=== PATIENT | female | born 1930 | race Caucasian/White ===

== ENCOUNTER 2017-12-13 16:34 | Inpatient (IN) | payer MEDICARE, BC ==
--- NOTE | 2017-12-13 16:53 | EDM.PDOC ---
ED HPI GENERAL MEDICAL PROBLEM - General Chief Complaint: General Stated Complaint: VERTIGO FEELING FOR A WEEK N/V Time Seen by Provider: 12/13/17 16:45 Source of Information: Reports: Patient, EMS Notes Reviewed History Limitations: Reports: No Limitations - History of Present Illness INITIAL COMMENTS - FREE TEXT/NARRATIVE: this afternoon she became very dizzy with the room spinning and sat down on the floor so she would not fall. She was nauseated but did not vomit and remains nauseated. She did call EMS due to the dizziness. When arriving here she is still very nauseated with some dry heaves. Feels the dizziness is better if she keeps her eyes closed. Denies any chest pain or SOB. No diarrhea. Has been in clinic several times with some nausea and anxiety recently and was recently started on the sertraline. Denies any pain at this time. Onset: Sudden Associated Symptoms: Reports: Nausea/Vomiting, Weakness. Denies: Confusion, Chest Pain, Fever/Chills, Shortness of Breath - Related Data Allergies Allergy/AdvReac Type Severity Reaction Status Date / Time No Known Allergies Allergy Verified 12/13/17 18:41 Home Meds: Home Meds Aspirin [Halfprin] 81 mg PO DAILY 10/09/13 [History] Calcium Carbonate/Vitamin D3 [Calcium 600 + Vit D Tablet] 3 tab PO DAILY [History] Cholecalciferol (Vitamin D3) [Vitamin D] 1,000 units PO DAILY 10/09/13 [History] Enalapril Maleate 5 mg PO BID 10/09/13 [History] Flaxseed Oil [Flax Oil] 1 cap PO DAILY 10/09/13 [History] Hydrochlorothiazide 12.5 mg PO DAILY 10/09/13 [History] LORazepam [Ativan] 0.5 mg PO BEDTIME PRN 10/09/13 [History] Magnesium 250 mg PO DAILY 10/09/13 [History] Meclizine [Antivert] 25 mg PO TID PRN 10/09/13 [History] Multivit-Min/FA/Lycopene/Lut [Centrum Silver] 1 tab PO DAILY 10/09/13 [History] Simvastatin 10 mg PO DAILY 10/09/13 [History] Vitamin B Complex 1 cap PO DAILY 10/09/13 [History] Vitamin E 400 units PO DAILY 10/09/13 [History] Ascorbic Acid [Vitamin C] 1,000 mg PO DAILY 12/13/17 [History] Biotin 5,000 mcg PO DAILY 12/13/17 [History] Famotidine 20 mg PO BID 12/13/17 [History] Ferrous Sulfate 325 mg PO DAILY 12/13/17 [History] Niacin 100 mg PO DAILY 12/13/17 [History] Sertraline [Zoloft] 12.5 mg PO DAILY 12/13/17 [History] Past Medical History HEENT History: Reports: Cataract Cardiovascular History: Reports: High Cholesterol, Hypertension LAY OUT DRAFTER History: Reports: , Other (See Below) Other LAY OUT DRAFTER History: C SECTION X2 - Past Surgical History HEENT Surgical History: Reports: Cataract Surgery, Tonsillectomy Social & Family History - Caffeine Use Caffeine Use: Reports: Coffee - Living Situation & Occupation Living situation: Reports: , Alone Occupation: Retired ED ROS GENERAL - Review of Systems Review Of Systems: See Below Constitutional: Reports: Weakness. Denies: Fever, Chills HEENT: Reports: Vertigo. Denies: Ear Pain, Vision Change Respiratory: Denies: Shortness of Breath Cardiovascular: Denies: Chest Pain, Dyspnea on Exertion, Edema GI/Abdominal: Reports: Nausea, Vomiting. Denies: Abdominal Pain, Diarrhea : Reports: No Symptoms Musculoskeletal: Reports: No Symptoms Skin: Denies: Rash Neurological: Reports: Dizziness, Weakness. Denies: Confusion, Headache, Numbness, Tingling, Change in Speech Psychiatric: Reports: Anxiety ED EXAM, GENERAL - Physical Exam Exam: See Below Exam Limited By: No Limitations General Appearance: Alert, Anxious, Mild Distress Eye Exam: Bilateral Eye: PERRL (3mm) Ears: Normal External Exam, Normal Canal, Normal TMs Nose: Normal Inspection Throat/Mouth: Normal Inspection, Normal Oropharynx, No Airway Compromise Head: Atraumatic, Normocephalic Neck: Normal Inspection, Supple, Non-Tender, Full Range of Motion Respiratory/Chest: No Respiratory Distress, Lungs Clear, Normal Breath Sounds Cardiovascular: Regular Rate, Rhythm, No Edema GI/Abdominal: Normal Bowel Sounds, Soft, Non-Tender Back Exam: Normal Inspection Extremities: Normal Inspection, Non-Tender, No Pedal Edema, Normal Capillary Refill Neurological: Alert, Oriented Skin Exam: Warm, Dry, Intact Course - Vital Signs Last Recorded V/S: Last Vital Signs Temp 97 F 12/13/17 17:53 Pulse 75 12/13/17 17:53 Resp 18 12/13/17 17:53 BP 173/54 H 12/13/17 17:53 Pulse Ox 100 12/13/17 17:53 - Orders/Labs/Meds Orders: Active Orders 24 hr Category Date Time Status Head wo Cont [CT] Stat Exams 12/13/17 16:49 Taken Ondansetron [Zofran] Med 12/13/17 16:47 Active 4 mg IVPUSH Q6H PRN Medication Orders Ondansetron HCl (Zofran) 4 mg IVPUSH Q6H PRN PRN Reason: Nausea Last Admin: 12/13/17 17:01 Dose: 4 mg Labs: Laboratory Tests 12/13/17 12/13/17 12/13/17 Range/Units 16:37 16:50 16:50 WBC 5.5 (5.0-10.0) 10^3/uL RBC 3.37 L (4.00-5.50) 10^6/uL Hgb 10.3 L (12.0-16.0) g/dL Hct 30.6 L (37.0-47.0) % MCV 90.8 (82.0-94.0) fL MCH 30.6 (27.0-32.0) pg MCHC 33.7 (33.0-38.0) g/dL RDW Coeff of Srinivas 17.2 H (11.0-15.0) % Plt Count 218 (150-400) 10^3/uL Neut % (Auto) 60.8 (35-85) % Lymph % (Auto) 24.8 (10-55) % Cross % (Auto) 11.7 (0-16) % Eos % (Auto) 2.0 (0-5) % Baso % (Auto) 0.7 (0-3) % Neut # (Auto) 3.34 (1.80-7.00) 10^3/uL Lymph # (Auto) 1.36 (1.00-4.80) 10^3/uL [place] # (Auto) 0.64 (0.00-0.80) 10^3/uL Eos # (Auto) 0.11 (0.00-0.45) 10^3/uL Baso # (Auto) 0.04 10^3/uL PT (9.7-12.3) SEC INR (0.92-1.18) Sodium 131 L (136-145) mEq/L Potassium 4.1 (3.5-5.0) mEq/L Chloride 93 L (98-106) mEq/L Carbon Dioxide 29 (21-32) mmol/L BUN 10 (7-18) mg/dL Creatinine 1.0 (0.6-1.0) mg/dL Est Cr Clr Drug Dosing 27.93 mL/min Estimated GFR (MDRD) 52 L (>=60) mL/min Glucose 128 H (75-99) mg/dL Calcium 9.4 (8.4-10.1) mg/dL Lactate Dehydrogenase 580 H (100-190) U/L Creatine Kinase 44 (21-215) U/L Troponin I < 0.017 (0.00-0.06) ng/mL Urine Color Yellow (YELLOW) Urine Appearance Clear (CLEAR) Urine pH 8.5 H (4.5-8.0) Ur Specific [place] 1.015 (1.003-1.020) Urine Protein Negative (NEGATIVE) mg/dL Urine Glucose (UA) Negative (NEGATIVE) mg/dL Urine Ketones Negative (NEGATIVE) mg/dL Urine Occult Blood Negative (NEGATIVE) Urine Nitrite Negative (NEGATIVE) Urine Bilirubin Negative (NEGATIVE) Urine Urobilinogen 0.2 (0.2-1.0) EU/dL Ur Leukocyte Esterase Negative (NEGATIVE) Urine RBC Not seen (0-5) /HPF Urine WBC Not seen (0-5) /HPF Amorphous Sediment Few H (NOT SEEN) /HPF Urine Bacteria Few H (NOT SEEN) /HPF 12/13/18 Range/Units 16:50 WBC (5.0-10.0) 10^3/uL RBC (4.00-5.50) 10^6/uL Hgb (12.0-16.0) g/dL Hct (37.0-47.0) % MCV (82.0-94.0) fL MCH (27.0-32.0) pg MCHC (33.0-38.0) g/dL RDW Coeff of Srinivas (11.0-15.0) % Plt Count (150-400) 10^3/uL Neut % (Auto) (35-85) % Lymph % (Auto) (10-55) % Cross % (Auto) (0-16) % Eos % (Auto) (0-5) % Baso % (Auto) (0-3) % Neut # (Auto) (1.80-7.00) 10^3/uL Lymph # (Auto) (1.00-4.80) 10^3/uL Cross # (Auto) (0.00-0.80) 10^3/uL Eos # (Auto) (0.00-0.45) 10^3/uL Baso # (Auto) 10^3/uL PT 10.5 (9.7-12.3) SEC INR 1.01 (0.92-1.18) Sodium (136-145) mEq/L Potassium (3.5-5.0) mEq/L Chloride (98-106) mEq/L Carbon Dioxide (21-32) mmol/L BUN (7-18) mg/dL Creatinine (0.6-1.0) mg/dL Est Cr Clr Drug Dosing mL/min Estimated GFR (MDRD) (>=60) mL/min Glucose (75-99) mg/dL Calcium (8.4-10.1) mg/dL Lactate Dehydrogenase (100-190) U/L Creatine Kinase (21-215) U/L Troponin I (0.00-0.06) ng/mL Urine Color (YELLOW) Urine Appearance (CLEAR) Urine pH (4.5-8.0) Ur Specific [place] (1.003-1.020) Urine Protein (NEGATIVE) mg/dL Urine Glucose (UA) (NEGATIVE) mg/dL Urine Ketones (NEGATIVE) mg/dL Urine Occult Blood (NEGATIVE) Urine Nitrite (NEGATIVE) Urine Bilirubin (NEGATIVE) Urine Urobilinogen (0.2-1.0) EU/dL Ur Leukocyte Esterase (NEGATIVE) Urine RBC (0-5) /HPF Urine WBC (0-5) /HPF Amorphous Sediment (NOT SEEN) /HPF Urine Bacteria (NOT SEEN) /HPF Meds: Medications Generic Name Dose Route Start Last Admin Trade Name Freq PRN Reason Stop Dose Admin Ondansetron HCl 4 mg 12/13/17 16:47 12/13/17 17:01 Zofran IVPUSH 4 mg Q6H PRN Administration Nausea - Re-Assessments/Exams Free Text/Narrative Re-Assessment/Exam: 12/13/17 18:08 Radiologist did call with normal CT of head report. Discussed case with Dr. Ramirez and will admit to observation with consult to PT. He agrees with admission and plan. Departure - Departure Time of Disposition: 18:20 Disposition: Refer to Observation Condition: Fair Clinical Impression: Vertigo - Discharge Information *PRESCRIPTION DRUG MONITORING PROGRAM REVIEWED*: No *COPY OF PRESCRIPTION DRUG MONITORING REPORT IN PATIENT YESSICA: No - Problem List & Annotations (1) Vertigo SNOMED Code(s): 064156656 Code(s): R42 - DIZZINESS AND GIDDINESS Status: Acute Priority: High Current Visit: Yes - Problem List Review Problem List Initiated/Reviewed/Updated: Yes - My Orders Last 24 Hours: My Active Orders 12/13/17 16:47 Ondansetron [Zofran] 4 mg IVPUSH Q6H PRN 12/13/17 16:49 Head wo Cont [CT] Stat - Assessment/Plan Admission H&P: Please use this note as an admission H&P Last 24 Hours: My Active Orders 12/13/17 16:47 Ondansetron [Zofran] 4 mg IVPUSH Q6H PRN 12/13/17 16:49 Head wo Cont [CT] Stat
[2017-12-13] MEDS: Ondansetron 4 MG/2 ML SDV IVPUSH PRN (17:01)
[2017-12-13 17:20] LABS: CHLORIDE,CL 93 mEq/L (98-106); SODIUM,NA 131 mEq/L (136-145)
[2017-12-13] MEDS ORDERED: Acetaminophen 325 MG Tab PO PRN (20:07)
[2017-12-13] MEDS ORDERED: Sodium Chloride 0.9% 10 ML Syringe FLUSH PRN (20:07)
[2017-12-13] MEDS: Sodium Chloride 0.9% 1,000 ML IV SCH (20:55)
[2017-12-13] MEDS: Enoxaparin 30 MG/0.3 ML Syringe SUBCUT SCH (20:57)
[2017-12-13] MEDS: Pantoprazole 40 MG Vial IVPUSH SCH (20:57)
[2017-12-13] MEDS: ENALAPRIL 5 MG PO SCH (21:00)
[2017-12-13] MEDS: SERTRALINE 25 MG PO SCH (21:00)
[2017-12-14] MEDS ORDERED: MAGNESIUM 500 MG PO SCH (08:00)
[2017-12-14] MEDS: ENALAPRIL 5 MG PO SCH ×2 (09:20→20:14)
[2017-12-14] MEDS: HYDROCHLOROTHIAZIDE 12.5 MG PO SCH (09:20)
[2017-12-14] MEDS: MECLIZINE 25 MG PO PRN ×2 (09:20→12:58)
[2017-12-14] MEDS: Sodium Chloride 0.9% 1,000 ML IV SCH (09:27)
--- NOTE | 2017-12-14 11:12 | PCM.PN ---
- General Info Date of Service: 12/14/17 Admission Dx/Problem (Free Text): Vertigo Functional Status: Reports: Pain Controlled, Tolerating Diet, Ambulating ( ambulating with walker, does still feel unsteady with dizziness.) - Review of Systems General: Reports: Weakness. Denies: Fever, Fatigue, Malaise HEENT: Denies: Ear Pain, Sinus Congestion, Rhinitis Pulmonary: Denies: Shortness of Breath, Cough Cardiovascular: Denies: Chest Pain, Edema, Lightheadedness Gastrointestinal: Reports: Nausea. Denies: Abdominal Pain, Vomiting Genitourinary: Denies: Dysuria Musculoskeletal: Reports: No Symptoms Skin: Reports: No Symptoms Neurological: Reports: Dizziness. Denies: Headache - Patient Data Vitals - Most Recent: Last Vital Signs Temp 98.6 F 12/14/17 08:00 Pulse 78 12/14/17 08:00 Resp 18 12/14/17 08:00 BP 135/52 L 12/14/17 08:00 Pulse Ox 99 12/14/17 08:00 Weight - Most Recent: 137 lb 3.2 oz I&O - Last 24 Hours: Intake & Output 12/13/17 12/14/17 12/14/17 22:59 06:59 14:59 Intake Total 940 Balance 940 Lab Results Last 24 Hours: Laboratory Results - last 24 hr 12/13/17 12/13/17 12/13/17 Range/Units 16:37 16:50 16:50 WBC 5.5 (5.0-10.0) 10^3/uL RBC 3.37 L (4.00-5.50) 10^6/uL Hgb 10.3 L (12.0-16.0) g/dL Hct 30.6 L (37.0-47.0) % MCV 90.8 (82.0-94.0) fL MCH 30.6 (27.0-32.0) pg MCHC 33.7 (33.0-38.0) g/dL RDW Coeff of Srinivas 17.2 H (11.0-15.0) % Plt Count 218 (150-400) 10^3/uL Neut % (Auto) 60.8 (35-85) % Lymph % (Auto) 24.8 (10-55) % [place] % (Auto) 11.7 (0-16) % Eos % (Auto) 2.0 (0-5) % Baso % (Auto) 0.7 (0-3) % Neut # (Auto) 3.34 (1.80-7.00) 10^3/uL Lymph # (Auto) 1.36 (1.00-4.80) 10^3/uL [place] # (Auto) 0.64 (0.00-0.80) 10^3/uL Eos # (Auto) 0.11 (0.00-0.45) 10^3/uL Baso # (Auto) 0.04 10^3/uL PT (9.7-12.3) SEC INR (0.92-1.18) Sodium 131 L (136-145) mEq/L Potassium 4.1 (3.5-5.0) mEq/L Chloride 93 L (98-106) mEq/L Carbon Dioxide 29 (21-32) mmol/L BUN 10 (7-18) mg/dL Creatinine 1.0 (0.6-1.0) mg/dL Est Cr Clr Drug Dosing 27.93 mL/min Estimated GFR (MDRD) 52 L (>=60) mL/min Glucose 128 H (75-99) mg/dL Calcium 9.4 (8.4-10.1) mg/dL Lactate Dehydrogenase 580 H (100-190) U/L Creatine Kinase 44 (21-215) U/L Troponin I < 0.017 (0.00-0.06) ng/mL Urine Color Yellow (YELLOW) Urine Appearance Clear (CLEAR) Urine pH 8.5 H (4.5-8.0) Ur Specific [place] 1.015 (1.003-1.020) Urine Protein Negative (NEGATIVE) mg/dL Urine Glucose (UA) Negative (NEGATIVE) mg/dL Urine Ketones Negative (NEGATIVE) mg/dL Urine Occult Blood Negative (NEGATIVE) Urine Nitrite Negative (NEGATIVE) Urine Bilirubin Negative (NEGATIVE) Urine Urobilinogen 0.2 (0.2-1.0) EU/dL Ur Leukocyte Esterase Negative (NEGATIVE) Urine RBC Not seen (0-5) /HPF Urine WBC Not seen (0-5) /HPF Amorphous Sediment Few H (NOT SEEN) /HPF Urine Bacteria Few H (NOT SEEN) /HPF 12/13/17 12/14/17 12/14/17 Range/Units 16:50 07:08 07:08 WBC 5.8 (5.0-10.0) 10^3/uL RBC 3.03 L (4.00-5.50) 10^6/uL Hgb 9.1 L (12.0-16.0) g/dL Hct 28.0 L (37.0-47.0) % MCV 92.4 (82.0-94.0) fL MCH 30.0 (27.0-32.0) pg MCHC 32.5 L (33.0-38.0) g/dL RDW Coeff of Srinivas 17.3 H (11.0-15.0) % Plt Count 191 (150-400) 10^3/uL Neut % (Auto) 67.5 (35-85) % Lymph % (Auto) 19.0 (10-55) % [place] % (Auto) 10.6 (0-16) % Eos % (Auto) 2.2 (0-5) % Baso % (Auto) 0.7 (0-3) % Neut # (Auto) 3.93 (1.80-7.00) 10^3/uL Lymph # (Auto) 1.11 (1.00-4.80) 10^3/uL [place] # (Auto) 0.62 (0.00-0.80) 10^3/uL Eos # (Auto) 0.13 (0.00-0.45) 10^3/uL Baso # (Auto) 0.04 10^3/uL PT 10.5 (9.7-12.3) SEC INR 1.01 (0.92-1.18) Sodium 134 L (136-145) mEq/L Potassium 3.7 (3.5-5.0) mEq/L Chloride 98 (98-106) mEq/L Carbon Dioxide 31 (21-32) mmol/L BUN 9 (7-18) mg/dL Creatinine 1.0 (0.6-1.0) mg/dL Est Cr Clr Drug Dosing 27.93 mL/min Estimated GFR (MDRD) 52 L (>=60) mL/min Glucose 98 (75-99) mg/dL Calcium 8.4 (8.4-10.1) mg/dL Lactate Dehydrogenase (100-190) U/L Creatine Kinase (21-215) U/L Troponin I (0.00-0.06) ng/mL Urine Color (YELLOW) Urine Appearance (CLEAR) Urine pH (4.5-8.0) Ur Specific [place] (1.003-1.020) Urine Protein (NEGATIVE) mg/dL Urine Glucose (UA) (NEGATIVE) mg/dL Urine Ketones (NEGATIVE) mg/dL Urine Occult Blood (NEGATIVE) Urine Nitrite (NEGATIVE) Urine Bilirubin (NEGATIVE) Urine Urobilinogen (0.2-1.0) EU/dL Ur Leukocyte Esterase (NEGATIVE) Urine RBC (0-5) /HPF Urine WBC (0-5) /HPF Amorphous Sediment (NOT SEEN) /HPF Urine Bacteria (NOT SEEN) /HPF Med Orders - Current: Current Medications Acetaminophen (Tylenol) 650 mg PO Q4H PRN PRN Reason: Pain (Mild 1-3)/fever Enalapril Maleate (Vasotec) 5 mg PO BID [facility] Last Admin: 12/14/17 09:20 Dose: 5 mg Enoxaparin Sodium (Lovenox) 30 mg SUBCUT Q24H [facility] Last Admin: 12/13/17 20:57 Dose: 30 mg Hydrochlorothiazide (Hydrochlorothiazide) 12.5 mg PO DAILY [facility] Last Admin: 12/14/17 09:20 Dose: 12.5 mg Sodium Chloride (Normal Saline) 1,000 mls @ 75 mls/hr IV ASDIRECTED [facility] Last Admin: 12/14/17 09:27 Dose: 75 mls/hr Lorazepam (Ativan) 0.5 mg PO BEDTIME PRN PRN Reason: Sleep Ptom Meclizine [ (Antivert] 25 Mg) 25 mg PO TID PRN PRN Reason: dizziness Last Admin: 12/14/17 09:20 Dose: 25 mg Ptom Magnesium [ (Magnesium] 250 Mg) 250 mg PO DAILY [facility] Ondansetron HCl (Zofran) 4 mg IVPUSH Q6H PRN PRN Reason: Nausea Last Admin: 12/13/17 17:01 Dose: 4 mg Pantoprazole Sodium (Protonix Iv) 40 mg IVPUSH Q24H [facility] Last Admin: 12/13/17 20:57 Dose: 40 mg Sertraline HCl (Zoloft) 12.5 mg PO BEDTIME [facility] Last Admin: 12/13/17 21:00 Dose: 12.5 mg Sodium Chloride (Saline Flush) 10 ml FLUSH ASDIRECTED PRN PRN Reason: Keep Vein Open Discontinued Medications Ptom Magnesium [ (Magnesium] 500 Mg) 500 mg PO DAILY [facility] Last Admin: 12/14/17 09:22 Dose: Not Given - Exam General: Alert, Oriented, Cooperative, No Acute Distress HEENT: Pupils Equal, Pupils Reactive, Mucous Membr. Moist/[place] Neck: Supple Lungs: Clear to Auscultation, Normal Respiratory Effort Cardiovascular: Regular Rate, Regular Rhythm GI/Abdominal Exam: Normal Bowel Sounds, Soft, Non-Tender Extremities: Normal Inspection, No Pedal Edema Skin: Warm, Dry Neurological: No New Focal Deficit - Problem List & Annotations (1) Vertigo SNOMED Code(s): 743118452 Code(s): R42 - DIZZINESS AND GIDDINESS Status: Acute Priority: High Current Visit: Yes - Problem List Review Problem List Initiated/Reviewed/Updated: Yes - Assessment Assessment:: Vertigo - Plan Plan:: 12-14-2017 Patient resting without symptoms. Does admit that when she gets out of bed and ambulates or if she moves her head quickly, still gets nauseated and dizzy. Blood pressure stable this am. Labs are normal this am, WBC 5.8. Hemoglobin, 9.1. Sodium 134. CT scan of the head was negative yesterday. Will proceed with canalith repositioning today. Meclizine as needed. Reevaluate discharge potential in am.
[2017-12-14] MEDS: MECLIZINE 25 MG PO SCH ×2 (15:48→20:13)
[2017-12-14] MEDS ORDERED: MECLIZINE 25 MG PO SCH (16:00)
[2017-12-14] MEDS: SERTRALINE 25 MG PO SCH (20:15)
[2017-12-14] MEDS: Enoxaparin 30 MG/0.3 ML Syringe SUBCUT SCH (20:15)
[2017-12-14] MEDS: LORAZEPAM 0.5 MG PO PRN (20:22)
[2017-12-14] MEDS: Pantoprazole 40 MG Vial IVPUSH SCH (21:32)
[2017-12-15] MEDS: Sodium Chloride 0.9% 1,000 ML IV SCH ×2 (01:04→13:37)
[2017-12-15] MEDS: Ondansetron 4 MG/2 ML SDV IVPUSH PRN (01:07)
[2017-12-15] MEDS: HYDROCHLOROTHIAZIDE 12.5 MG PO SCH (07:47)
[2017-12-15] MEDS: ENALAPRIL 5 MG PO SCH ×2 (07:47→19:40)
[2017-12-15] MEDS: MAGNESIUM 250 MG PO SCH (07:47)
[2017-12-15] MEDS: MECLIZINE 25 MG PO SCH ×4 (07:48→19:41)
--- NOTE | 2017-12-15 13:15 | PCM.PN ---
- General Info Date of Service: 12/15/17 Admission Dx/Problem (Free Text): Vertigo Functional Status: Reports: Pain Controlled, Tolerating Diet, Ambulating - Review of Systems General: Reports: Weakness. Denies: Fever, Fatigue, Malaise HEENT: Reports: No Symptoms Pulmonary: Denies: Shortness of Breath, Cough Cardiovascular: Denies: Chest Pain, Edema, Lightheadedness Gastrointestinal: Reports: Nausea. Denies: Abdominal Pain, Vomiting Genitourinary: Reports: No Symptoms Musculoskeletal: Reports: No Symptoms Skin: Reports: No Symptoms Neurological: Reports: Dizziness - Patient Data Vitals - Most Recent: Last Vital Signs Temp 98.6 F 12/15/17 12:00 Pulse 74 12/15/17 12:00 Resp 20 12/15/17 12:00 BP 134/49 L 12/15/17 12:00 Pulse Ox 98 12/15/17 12:00 Weight - Most Recent: 137 lb 3.2 oz I&O - Last 24 Hours: Intake & Output 12/14/17 12/15/17 12/15/17 22:59 06:59 14:59 Intake Total 1000 Balance 1000 Med Orders - Current: Current Medications Acetaminophen (Tylenol) 650 mg PO Q4H PRN PRN Reason: Pain (Mild 1-3)/fever Enalapril Maleate (Vasotec) 5 mg PO BID [facility] Last Admin: 12/15/17 07:47 Dose: 5 mg Enoxaparin Sodium (Lovenox) 30 mg SUBCUT Q24H [facility] Last Admin: 12/14/17 20:15 Dose: 30 mg Hydrochlorothiazide (Hydrochlorothiazide) 12.5 mg PO DAILY [facility] Last Admin: 12/15/17 07:47 Dose: 12.5 mg Sodium Chloride (Normal Saline) 1,000 mls @ 75 mls/hr IV ASDIRECTED [facility] Last Admin: 12/15/17 01:04 Dose: 75 mls/hr Lorazepam (Ativan) 0.5 mg PO BEDTIME PRN PRN Reason: Sleep Last Admin: 12/14/17 20:22 Dose: 0.5 mg Ptom Magnesium [ (Magnesium] 250 Mg) 250 mg PO DAILY [facility] Last Admin: 12/15/17 07:47 Dose: 250 mg Meclizine 25 MgOwn (Med) 25 mg PO QID [facility] Last Admin: 12/15/17 12:07 Dose: 25 mg Ondansetron HCl (Zofran) 4 mg IVPUSH Q6H PRN PRN Reason: Nausea Last Admin: 12/15/17 01:07 Dose: 4 mg Pantoprazole Sodium (Protonix Iv) 40 mg IVPUSH Q24H [facility] Last Admin: 12/14/17 21:32 Dose: 40 mg Sertraline HCl (Zoloft) 12.5 mg PO BEDTIME [facility] Last Admin: 12/14/17 20:15 Dose: 12.5 mg Sodium Chloride (Saline Flush) 10 ml FLUSH ASDIRECTED PRN PRN Reason: Keep Vein Open Discontinued Medications Ptom Magnesium [ (Magnesium] 500 Mg) 500 mg PO DAILY [facility] Last Admin: 12/14/17 09:22 Dose: Not Given Ptom Meclizine [ (Antivert] 25 Mg) 25 mg PO TID PRN PRN Reason: dizziness Last Admin: 12/14/17 12:58 Dose: 25 mg Meclizine 25 MgOwn (Med) 25 mg PO QID [facility] - Exam General: Alert, Oriented HEENT: Mucous Membr. Moist/[place] Neck: Supple Lungs: Clear to Auscultation, Normal Respiratory Effort Cardiovascular: Regular Rate, Regular Rhythm GI/Abdominal Exam: Normal Bowel Sounds, Soft, Non-Tender Extremities: Normal Inspection, No Pedal Edema Skin: Warm, Dry Neurological: No New Focal Deficit - Problem List & Annotations (1) Vertigo SNOMED Code(s): 859527479 Code(s): R42 - DIZZINESS AND GIDDINESS Status: Acute Priority: High Current Visit: Yes - Problem List Review Problem List Initiated/Reviewed/Updated: Yes - My Orders Last 24 Hours: My Active Orders 12/14/17 16:00 Meclizine [Antivert] 25 mg PO QID 12/15/17 12:14 Collar Applied [Spinal Immobilization] [RC] ASDIRECTED - Assessment Assessment:: Vertigo - Plan Plan:: 12-14-2017 Patient resting without symptoms. Does admit that when she gets out of bed and ambulates or if she moves her head quickly, still gets nauseated and dizzy. Blood pressure stable this am. Labs are normal this am, WBC 5.8. Hemoglobin, 9.1. Sodium 134. CT scan of the head was negative yesterday. Will proceed with canalith repositioning today. Meclizine as needed. Reevaluate discharge potential in am. 12-15-2017 Patient still feeling somewhat dizzy this am. States had a "bad spell during the night". Had canalith repositioning yesterday but patient did not note much change with that. Continues to have dizziness when she gets up and ambulates or if she turns her head quickly. Patient is receiving Meclizine scheduled now. Will continue to work with PT. Transfer to inpatient as continues to be symptomatic. Soft collar on. Reevaluate in am.
[2017-12-15] MEDS: Menthol/Zinc Oxide Ointment 113 GM Tube TOP PRN (14:32)
[2017-12-15] MEDS: SERTRALINE 25 MG PO SCH (19:40)
[2017-12-15] MEDS: LORAZEPAM 0.5 MG PO PRN (19:43)
[2017-12-15] MEDS: Enoxaparin 30 MG/0.3 ML Syringe SUBCUT SCH (19:44)
[2017-12-15] MEDS: Pantoprazole 40 MG Vial IVPUSH SCH (20:54)
[2017-12-16] MEDS: Sodium Chloride 0.9% 1,000 ML IV SCH (02:54)
[2017-12-16] MEDS: HYDROCHLOROTHIAZIDE 12.5 MG PO SCH (07:33)
[2017-12-16] MEDS: ENALAPRIL 5 MG PO SCH ×2 (07:33→19:37)
[2017-12-16] MEDS: MAGNESIUM 250 MG PO SCH (07:34)
[2017-12-16] MEDS: MECLIZINE 25 MG PO SCH ×4 (07:34→19:37)
--- NOTE | 2017-12-16 09:00 | PCM.PN ---
- General Info Date of Service: 12/16/17 Admission Dx/Problem (Free Text): Vertigo Subjective Update: Patient denies any dizziness today. States she feels much better. Denies any pain or blood in stool. Functional Status: Reports: Pain Controlled Pain Score: 0 - Review of Systems General: Reports: No Symptoms HEENT: Reports: No Symptoms Pulmonary: Reports: No Symptoms Cardiovascular: Reports: No Symptoms Gastrointestinal: Reports: No Symptoms Genitourinary: Reports: No Symptoms Musculoskeletal: Reports: No Symptoms Skin: Reports: No Symptoms Neurological: Reports: No Symptoms Psychiatric: Reports: No Symptoms - Patient Data Vitals - Most Recent: Last Vital Signs Temp 36.3 C 12/16/17 07:25 Pulse 72 12/16/17 07:25 Resp 20 12/16/17 07:25 BP 152/53 H 12/16/17 07:33 Pulse Ox 100 12/16/17 07:25 Weight - Most Recent: 62.233 kg I&O - Last 24 Hours: Intake & Output 12/15/17 12/16/17 12/16/17 22:59 06:59 14:59 Intake Total 996 Balance 996 Lab Results Last 24 Hours: Laboratory Results - last 24 hr 12/16/17 12/16/17 Range/Units 06:45 06:45 WBC 4.9 L (5.0-10.0) 10^3/uL RBC 2.86 L (4.00-5.50) 10^6/uL Hgb 8.7 L (12.0-16.0) g/dL Hct 26.9 L (37.0-47.0) % MCV 94.1 H (82.0-94.0) fL MCH 30.4 (27.0-32.0) pg MCHC 32.3 L (33.0-38.0) g/dL RDW Coeff of Srinivas 17.5 H (11.0-15.0) % Plt Count 168 (150-400) 10^3/uL Neut % (Auto) 58.7 (35-85) % Lymph % (Auto) 26.4 (10-55) % [place] % (Auto) 11.0 (0-16) % Eos % (Auto) 3.1 (0-5) % Baso % (Auto) 0.8 (0-3) % Neut # (Auto) 2.87 (1.80-7.00) 10^3/uL Lymph # (Auto) 1.29 (1.00-4.80) 10^3/uL [place] # (Auto) 0.54 (0.00-0.80) 10^3/uL Eos # (Auto) 0.15 (0.00-0.45) 10^3/uL Baso # (Auto) 0.04 10^3/uL Sodium 138 (136-145) mEq/L Potassium 3.7 (3.5-5.0) mEq/L Chloride 103 (98-106) mEq/L Carbon Dioxide 29 (21-32) mmol/L BUN 10 (7-18) mg/dL Creatinine 0.9 (0.6-1.0) mg/dL Est Cr Clr Drug Dosing 31.04 mL/min Estimated GFR (MDRD) 59 L (>=60) mL/min Glucose 96 (75-99) mg/dL Calcium 8.0 L (8.4-10.1) mg/dL Med Orders - Current: Current Medications Acetaminophen (Tylenol) 650 mg PO Q4H PRN PRN Reason: Pain (Mild 1-3)/fever Calamine/Phenol (Calmoseptine) 0 gm TOP QID PRN PRN Reason: Itching Last Admin: 12/15/17 14:32 Dose: 1 applic Enalapril Maleate (Vasotec) 5 mg PO BID [facility] Last Admin: 12/16/17 07:33 Dose: 5 mg Enoxaparin Sodium (Lovenox) 30 mg SUBCUT Q24H [facility] Last Admin: 12/15/17 19:44 Dose: 30 mg Hydrochlorothiazide (Hydrochlorothiazide) 12.5 mg PO DAILY [facility] Last Admin: 12/16/17 07:33 Dose: 12.5 mg Lorazepam (Ativan) 0.5 mg PO BEDTIME PRN PRN Reason: Sleep Last Admin: 12/15/17 19:43 Dose: 0.5 mg Ptom Magnesium [ (Magnesium] 250 Mg) 250 mg PO DAILY [facility] Last Admin: 12/16/17 07:34 Dose: 250 mg Meclizine 25 MgOwn (Med) 25 mg PO QID [facility] Last Admin: 12/16/17 07:34 Dose: 25 mg Ondansetron HCl (Zofran) 4 mg IVPUSH Q6H PRN PRN Reason: Nausea Last Admin: 12/15/17 01:07 Dose: 4 mg Pantoprazole Sodium (Protonix Iv) 40 mg IVPUSH Q24H [facility] Last Admin: 12/15/17 20:54 Dose: 40 mg Sertraline HCl (Zoloft) 12.5 mg PO BEDTIME [facility] Last Admin: 12/15/17 19:40 Dose: 12.5 mg Sodium Chloride (Saline Flush) 10 ml FLUSH ASDIRECTED PRN PRN Reason: Keep Vein Open Discontinued Medications Sodium Chloride (Normal Saline) 1,000 mls @ 75 mls/hr IV ASDIRECTED [facility] Last Admin: 12/16/17 02:54 Dose: 75 mls/hr Ptom Magnesium [ (Magnesium] 500 Mg) 500 mg PO DAILY [facility] Last Admin: 12/14/17 09:22 Dose: Not Given Ptom Meclizine [ (Antivert] 25 Mg) 25 mg PO TID PRN PRN Reason: dizziness Last Admin: 12/14/17 12:58 Dose: 25 mg Meclizine 25 MgOwn (Med) 25 mg PO QID [facility] - Exam General: Alert, Oriented, Cooperative, No Acute Distress HEENT: Pupils Equal, Pupils Reactive, EOMI, Mucous Membr. Moist/[place] Neck: Supple Lungs: Clear to Auscultation, Normal Respiratory Effort Cardiovascular: Regular Rate, Regular Rhythm GI/Abdominal Exam: Normal Bowel Sounds, Soft, Non-Tender, No Organomegaly, No Distention Extremities: Normal Inspection, Normal Range of Motion, Non-Tender Skin: Warm, Dry, Intact Neurological: No New Focal Deficit Psy/Mental Status: Alert, Normal Affect, Normal Mood - Problem List Review Problem List Initiated/Reviewed/Updated: Yes - My Orders Last 24 Hours: My Active Orders 12/17/17 06:00 CBC WITH AUTO DIFF [HEME] Routine - Assessment Assessment:: Vertigo - Plan Plan:: 12-14-2017 Patient resting without symptoms. Does admit that when she gets out of bed and ambulates or if she moves her head quickly, still gets nauseated and dizzy. Blood pressure stable this am. Labs are normal this am, WBC 5.8. Hemoglobin, 9.1. Sodium 134. CT scan of the head was negative yesterday. Will proceed with canalith repositioning today. Meclizine as needed. Reevaluate discharge potential in am. 12-15-2017 Patient still feeling somewhat dizzy this am. States had a "bad spell during the night". Had canalith repositioning yesterday but patient did not note much change with that. Continues to have dizziness when she gets up and ambulates or if she turns her head quickly. Patient is receiving Meclizine scheduled now. Will continue to work with PT. Transfer to inpatient as continues to be symptomatic. Soft collar on. Reevaluate in am. 12/16/17 Discontinue IVF. Hgb was initially 10.3, now 8.7 probably hemodilution. Denies any blood in stool. Symptoms of dizziness improved. Will continue Meclizine and ambulate patient and see how she does. Still wearing C collar. Continue PT. Re-evaluate in a.m.
[2017-12-16] MEDS: Menthol/Zinc Oxide Ointment 113 GM Tube TOP PRN (09:56)
[2017-12-16] MEDS: SERTRALINE 25 MG PO SCH (19:38)
[2017-12-16] MEDS: LORAZEPAM 0.5 MG PO PRN (19:38)
[2017-12-16] MEDS: Enoxaparin 30 MG/0.3 ML Syringe SUBCUT SCH (19:39)
[2017-12-16] MEDS: Pantoprazole 40 MG Vial IVPUSH SCH (21:12)
[2017-12-17] MEDS: HYDROCHLOROTHIAZIDE 12.5 MG PO SCH (07:33)
[2017-12-17] MEDS: ENALAPRIL 5 MG PO SCH ×2 (07:33→19:54)
[2017-12-17] MEDS: MAGNESIUM 250 MG PO SCH (07:35)
[2017-12-17] MEDS: MECLIZINE 25 MG PO SCH ×4 (07:35→19:54)
[2017-12-17] MEDS: Menthol/Zinc Oxide Ointment 113 GM Tube TOP PRN (09:51)
--- NOTE | 2017-12-17 11:20 | PCM.PN ---
- General Info Date of Service: 12/17/17 Admission Dx/Problem (Free Text): Vertigo Subjective Update: Patient continues to deny any dizziness today. Good appetite. Slept well last night. Denies any chest pain or SOB. Functional Status: Reports: Pain Controlled - Review of Systems General: Reports: No Symptoms HEENT: Reports: No Symptoms Pulmonary: Reports: No Symptoms Cardiovascular: Reports: No Symptoms Gastrointestinal: Reports: No Symptoms Genitourinary: Reports: No Symptoms Musculoskeletal: Reports: No Symptoms Skin: Reports: No Symptoms Neurological: Reports: No Symptoms Psychiatric: Reports: No Symptoms - Patient Data Vitals - Most Recent: Last Vital Signs Temp 36.4 C 12/17/17 07:13 Pulse 70 12/17/17 07:13 Resp 20 12/17/17 07:13 BP 147/60 H 12/17/17 07:33 Pulse Ox 97 12/17/17 07:13 Weight - Most Recent: 62.233 kg Lab Results Last 24 Hours: Laboratory Results - last 24 hr 12/17/17 Range/Units 07:10 WBC 4.7 L (5.0-10.0) 10^3/uL RBC 3.00 L (4.00-5.50) 10^6/uL Hgb 9.1 L (12.0-16.0) g/dL Hct 28.1 L (37.0-47.0) % MCV 93.7 (82.0-94.0) fL MCH 30.3 (27.0-32.0) pg MCHC 32.4 L (33.0-38.0) g/dL RDW Coeff of Srinivas 17.5 H (11.0-15.0) % Plt Count 188 (150-400) 10^3/uL Add Manual Diff Yes Neutrophils % (Manual) 60 (35-85) % Band Neutrophils % 1 (0-5) % Lymphocytes % (Manual) 23 (21-55) % Monocytes % (Manual) 9 (2-12) % Eosinophils % (Manual) 5 (0-5) % Basophils % (Manual) 1 (0-3) % Metamyelocytes % 1 % Absolute Neutrophils 2.87 (1.80-7.00) 10^3/uL Lymphocytes # (Manual) 1.08 (1.00-4.80) 10^3/uL Monocytes # (Manual) 0.42 (0.00-0.80) 10^3/uL Eosinophils # (Manual) 0.24 (0.00-0.45) 10^3/uL Basophils # (Manual) 0.05 10^3/uL Microcytosis Few (NOT SEEN) Med Orders - Current: Current Medications Acetaminophen (Tylenol) 650 mg PO Q4H PRN PRN Reason: Pain (Mild 1-3)/fever Calamine/Phenol (Calmoseptine) 0 gm TOP QID PRN PRN Reason: Itching Last Admin: 12/17/17 09:51 Dose: 1 applic Enalapril Maleate (Vasotec) 5 mg PO BID [facility] Last Admin: 12/17/17 07:33 Dose: 5 mg Enoxaparin Sodium (Lovenox) 30 mg SUBCUT Q24H [facility] Last Admin: 12/16/17 19:39 Dose: 30 mg Hydrochlorothiazide (Hydrochlorothiazide) 12.5 mg PO DAILY [facility] Last Admin: 12/17/17 07:33 Dose: 12.5 mg Lorazepam (Ativan) 0.5 mg PO BEDTIME PRN PRN Reason: Sleep Last Admin: 12/16/17 19:38 Dose: 0.5 mg Ptom Magnesium [ (Magnesium] 250 Mg) 250 mg PO DAILY [facility] Last Admin: 12/17/17 07:35 Dose: 250 mg Meclizine 25 MgOwn (Med) 25 mg PO QID [facility] Last Admin: 12/17/17 07:35 Dose: 25 mg Ondansetron HCl (Zofran) 4 mg IVPUSH Q6H PRN PRN Reason: Nausea Last Admin: 12/15/17 01:07 Dose: 4 mg Pantoprazole Sodium (Protonix Iv) 40 mg IVPUSH Q24H [facility] Last Admin: 12/16/17 21:12 Dose: 40 mg Sertraline HCl (Zoloft) 12.5 mg PO BEDTIME [facility] Last Admin: 12/16/17 19:38 Dose: 12.5 mg Sodium Chloride (Saline Flush) 10 ml FLUSH ASDIRECTED PRN PRN Reason: Keep Vein Open Discontinued Medications Sodium Chloride (Normal Saline) 1,000 mls @ 75 mls/hr IV ASDIRECTED [facility] Last Admin: 12/16/17 02:54 Dose: 75 mls/hr Ptom Magnesium [ (Magnesium] 500 Mg) 500 mg PO DAILY [facility] Last Admin: 12/14/17 09:22 Dose: Not Given Ptom Meclizine [ (Antivert] 25 Mg) 25 mg PO TID PRN PRN Reason: dizziness Last Admin: 12/14/17 12:58 Dose: 25 mg Meclizine 25 MgOwn (Med) 25 mg PO QID [facility] - Exam General: Alert, Oriented, No Acute Distress HEENT: Pupils Equal, Pupils Reactive, EOMI, Mucous Membr. Moist/[place] Neck: Supple, Trachea Midline, No JVD Lungs: Clear to Auscultation, Normal Respiratory Effort Cardiovascular: Regular Rate, Regular Rhythm GI/Abdominal Exam: Normal Bowel Sounds, Soft, Non-Tender, No Organomegaly, No Distention, No Abnormal Bruit, No Mass, Pelvis Stable Extremities: Normal Inspection, Normal Range of Motion, Non-Tender Skin: Warm, Dry, Intact Neurological: No New Focal Deficit Psy/Mental Status: Alert, Normal Affect, Normal Mood - Problem List Review Problem List Initiated/Reviewed/Updated: Yes - Assessment Assessment:: Vertigo - Plan Plan:: 12-14-2017 Patient resting without symptoms. Does admit that when she gets out of bed and ambulates or if she moves her head quickly, still gets nauseated and dizzy. Blood pressure stable this am. Labs are normal this am, WBC 5.8. Hemoglobin, 9.1. Sodium 134. CT scan of the head was negative yesterday. Will proceed with canalith repositioning today. Meclizine as needed. Reevaluate discharge potential in am. 12-15-2017 Patient still feeling somewhat dizzy this am. States had a "bad spell during the night". Had canalith repositioning yesterday but patient did not note much change with that. Continues to have dizziness when she gets up and ambulates or if she turns her head quickly. Patient is receiving Meclizine scheduled now. Will continue to work with PT. Transfer to inpatient as continues to be symptomatic. Soft collar on. Reevaluate in am. 12/16/17 Discontinue IVF. Hgb was initially 10.3, now 8.7 probably hemodilution. Denies any blood in stool. Symptoms of dizziness improved. Will continue Meclizine and ambulate patient and see how she does. Still wearing C collar. Continue PT. Re-evaluate in a.m. 12/17/17 Patient continues to do well today. Dizziness seems to have resolved. Reviewed labs. Hgb 9.1 trending upward. Sodium now normal at 138 previously low at 131 and 134. Was able to ambulate yesterday without dizziness. Possible discharge tomorrow.
[2017-12-17] MEDS: LORAZEPAM 0.5 MG PO PRN (19:54)
[2017-12-17] MEDS: Enoxaparin 30 MG/0.3 ML Syringe SUBCUT SCH (19:54)
[2017-12-17] MEDS: SERTRALINE 25 MG PO SCH (19:54)
[2017-12-17] MEDS: Pantoprazole 40 MG Vial IVPUSH SCH (20:04)
[2017-12-18] MEDS: HYDROCHLOROTHIAZIDE 12.5 MG PO SCH (07:39)
[2017-12-18] MEDS: MAGNESIUM 250 MG PO SCH (07:40)
[2017-12-18] MEDS: MECLIZINE 25 MG PO SCH ×2 (07:40→11:44)
[2017-12-18] MEDS: ENALAPRIL 5 MG PO SCH (07:45)
[2017-12-18 07:46] VITALS: BP 142/54
--- NOTE | 2017-12-18 20:24 | PCM.DCSUM1 ---
Discharge Summary - Hospital Course Free Text/Narrative:: Patient presented to ER with complaints of dizziness and nausea. Had called EMS due to dizziness. States felt better if kept her eyes closed. Had to sit on the floor due to dizziness and was afraid she would fall. She has had issues for years with this, previously been controlled with Meclizine. States that has not worked as well as of late. No head trauma. CT scan done in the ER negative. Labs did show low sodium. Admitted for IV fluids, schedule for canalith repositioning Diagnosis: Stroke: No Modified [place] Scale: No Symptoms at All Modified [place] Scale Score: 0 - Discharge Data Discharge Date: 12/18/17 Discharge Disposition: Home, Self-Care 01 Condition: Fair - Discharge Diagnosis/Problem(s) (1) Vertigo SNOMED Code(s): 366286208 ICD Code: R42 - DIZZINESS AND GIDDINESS Status: Acute Priority: High - Patient Summary/Data Complications: none Consults: Consultations 12/13/17 20:07 PT Evaluation and Treatment [CONS] Routine Hospital Course: Patient has improved since admission. Did have recurring episodes of dizziness in first 2 days of admission. Did have canalith repositioning but did not note much improvement initially. Labs have improved. Sodium now normal. IV fluids stopped on Monday. No dizzy spells since Monday. Up and ambulating and tolerating well. No further nausea. - Patient Instructions Diet: Usual Diet as Tolerated Activity: As Tolerated - Discharge Plan *PRESCRIPTION DRUG MONITORING PROGRAM REVIEWED*: No *COPY OF PRESCRIPTION DRUG MONITORING REPORT IN PATIENT YESSICA: No Prescriptions/Med Rec: Cetirizine [ZyrTEC] 10 mg PO DAILY #30 tab Home Medications: Home Meds Aspirin [Halfprin] 81 mg PO DAILY 10/09/13 [History] Calcium Carbonate/Vitamin D3 [Calcium 600 + Vit D Tablet] 3 tab PO DAILY [History] Cholecalciferol (Vitamin D3) [Vitamin D3] 1,000 units PO DAILY 10/09/13 [History ] Enalapril Maleate 5 mg PO BID 10/09/13 [History] Flaxseed Oil [Flax Oil] 1 cap PO DAILY 10/09/13 [History] Hydrochlorothiazide 12.5 mg PO DAILY 10/09/13 [History] LORazepam [Ativan] 0.5 mg PO BEDTIME PRN 10/09/13 [History] Magnesium 250 mg PO DAILY 10/09/13 [History] Multivit-Min/FA/Lycopene/Lut [Centrum Silver] 1 tab PO DAILY 10/09/13 [History] Simvastatin 10 mg PO DAILY 10/09/13 [History] Vitamin B Complex 1 cap PO DAILY 10/09/13 [History] Vitamin E 400 units PO DAILY 10/09/13 [History] Ascorbic Acid [Vitamin C] 1,000 mg PO DAILY 12/13/17 [History] Biotin 5,000 mcg PO DAILY 12/13/17 [History] Famotidine 20 mg PO BID 12/13/17 [History] Ferrous Sulfate 325 mg PO DAILY 12/13/17 [History] Niacin 100 mg PO DAILY 12/13/17 [History] Sertraline [Zoloft] 12.5 mg PO DAILY 12/13/17 [History] Cetirizine [ZyrTEC] 10 mg PO DAILY #30 tab 12/18/17 [Rx] Meclizine [Antivert] 25 mg PO QID PRN #120 12/18/17 [Rx] Menthol/Zinc Oxide [Calmoseptine] 0 gm TOP QID PRN #0 tube 12/18/17 [Rx] Patient Handouts: Vertigo Forms: ED Department Discharge Referrals: Aleksandra Rosario PA-C [Primary Care Provider] - (Follow up with Aleksandra Rosario in one week for hospital recheck) - Discharge Summary/Plan Comment DC Time >30 min.: No Discharge Summary/Plan Comment: Discharge home Continue Meclizine Follow up with Aleksandra Rosario in one week - Patient Data Vitals - Most Recent: Last Vital Signs Temp 97.9 F 12/18/17 07:54 Pulse 75 12/18/17 07:54 Resp 16 12/18/17 07:54 BP 142/54 H 12/18/17 07:54 Pulse Ox 99 12/18/17 07:54 Weight - Most Recent: 137 lb 3.2 oz Med Orders - Current: Current Medications Discontinued Medications Acetaminophen (Tylenol) 650 mg PO Q4H PRN PRN Reason: Pain (Mild 1-3)/fever Calamine/Phenol (Calmoseptine) 0 gm TOP QID PRN PRN Reason: Itching Last Admin: 12/17/17 09:51 Dose: 1 applic Enalapril Maleate (Vasotec) 5 mg PO BID [facility] Last Admin: 12/18/17 07:45 Dose: 5 mg Enoxaparin Sodium (Lovenox) 30 mg SUBCUT Q24H [facility] Last Admin: 12/17/17 19:54 Dose: 30 mg Hydrochlorothiazide (Hydrochlorothiazide) 12.5 mg PO DAILY [facility] Last Admin: 12/18/17 07:39 Dose: 12.5 mg Sodium Chloride (Normal Saline) 1,000 mls @ 75 mls/hr IV ASDIRECTED [facility] Last Admin: 12/16/17 02:54 Dose: 75 mls/hr Lorazepam (Ativan) 0.5 mg PO BEDTIME PRN PRN Reason: Sleep Last Admin: 12/17/17 19:54 Dose: 0.5 mg Ptom Magnesium [ (Magnesium] 500 Mg) 500 mg PO DAILY [facility] Last Admin: 12/14/17 09:22 Dose: Not Given Ptom Meclizine [ (Antivert] 25 Mg) 25 mg PO TID PRN PRN Reason: dizziness Last Admin: 12/14/17 12:58 Dose: 25 mg Ptom Magnesium [ (Magnesium] 250 Mg) 250 mg PO DAILY [facility] Last Admin: 12/18/17 07:40 Dose: 250 mg Meclizine 25 MgOwn (Med) 25 mg PO QID [facility] Meclizine 25 MgOwn (Med) 25 mg PO QID [facility] Last Admin: 12/18/17 11:44 Dose: 25 mg Ondansetron HCl (Zofran) 4 mg IVPUSH Q6H PRN PRN Reason: Nausea Last Admin: 12/15/17 01:07 Dose: 4 mg Pantoprazole Sodium (Protonix Iv) 40 mg IVPUSH Q24H [facility] Last Admin: 12/17/17 20:04 Dose: 40 mg Sertraline HCl (Zoloft) 12.5 mg PO BEDTIME [facility] Last Admin: 12/17/17 19:54 Dose: 12.5 mg Sodium Chloride (Saline Flush) 10 ml FLUSH ASDIRECTED PRN PRN Reason: Keep Vein Open
== END 2017-12-18 12:35 | disposition home or self-care (01) | DRG 641 ==
LOC: CC.ED 16:34 → CC.MS 17:34 → OBSVTOIN 12-15 12:14 → INTOOBSV 12-15 13:00 → UNDODISIN 12-18 12:35
PROVIDERS: ADMIT Physician Assistant Medical; ATTEND Family Medicine
DX: E87.1 Hypo-osmolality and hyponatremia (principal); I10 Essential (primary) hypertension; E78.00 Pure hypercholesterolemia, unspecified; F41.9 Anxiety disorder, unspecified; Z79.82 Long term (current) use of aspirin; Z79.899 Other long term (current) drug therapy
CPT/HCPCS: 36415 ×2; 70450; 80048 ×2; 81001; 82550; 83615; 84484; 85025 ×2; 85610; 93005; 93010; 96361 ×3; 96372 ×2; 96374; 96375; 96376 ×2; 97110; 97112; 97161; 99220; 99225; 99285; A9270 ×16; C9113 ×2; G0378 ×2; J1650 ×2; J2405 ×2; J7030 ×3

== ENCOUNTER 2018-01-21 18:05 | Emergency (ER) | payer MEDICARE, BC ==
[2018-01-21 18:19] VITALS: BP 160/80
--- NOTE | 2018-01-21 18:26 | EDM.PDOC ---
ED HPI GENERAL MEDICAL PROBLEM - General Chief Complaint: Neuro Symptoms/Deficits Stated Complaint: tingly hands feet and face Time Seen by Provider: 01/21/18 18:26 - History of Present Illness INITIAL COMMENTS - FREE TEXT/NARRATIVE: Radha is a 87 year old female who presents to the ED with c/o tingling in her bilateral fingers and feet. She reports just prior to calling the ambulance she had some tingling in her bilateral fingers, feet, and around her mouth. She reports upon ED presentation the tingling in her face and fingers have resolved , but she does still have some tingling in her feet. She reports she "felt a thump" in her head as well. Symptom onset ~1800. At the time of ED presentation , she is alert, oriented, and ambulatory. She has no additional complaints. Chart review show she has been having similar symptoms and was recently started on sertraline for anxiety. She has also been seeing Dr. Rojas. She recently had a negative head CT due to vertigo and this abnormal sensation in her head. Onset: Today, Sudden Onset Date: 01/21/18 Onset Time: 18:00 Duration: Resolved Prior to Arrival Location: Reports: Face, Upper Extremity, Left, Upper Extremity, Right, Lower Extremity, Left, Lower Extremity, Right Quality: Reports: Other (tingling) Associated Symptoms: Reports: Other ("thump in head"). Denies: Confusion, Chest Pain, Cough, cough w sputum, Diaphoresis, Fever/Chills, Headaches, Loss of Appetite, Malaise, Nausea/Vomiting, Rash, Seizure, Shortness of Breath, Syncope, Weakness - Related Data Allergies Allergy/AdvReac Type Severity Reaction Status Date / Time No Known Allergies Allergy Verified 01/21/18 18:26 Home Meds: Home Meds Aspirin [Halfprin] 81 mg PO DAILY 10/09/13 [History] Calcium Carbonate/Vitamin D3 [Calcium 600 + Vit D Tablet] 3 tab PO DAILY [History] Cholecalciferol (Vitamin D3) [Vitamin D3] 1,000 units PO DAILY 10/09/13 [History ] Enalapril Maleate 5 mg PO BID 10/09/13 [History] Flaxseed Oil [Flax Oil] 1 cap PO DAILY 10/09/13 [History] Hydrochlorothiazide 12.5 mg PO DAILY 10/09/13 [History] LORazepam [Ativan] 0.5 mg PO BEDTIME PRN 10/09/13 [History] Magnesium 250 mg PO DAILY 10/09/13 [History] Multivit-Min/FA/Lycopene/Lut [Centrum Silver] 1 tab PO DAILY 10/09/13 [History] Simvastatin 10 mg PO DAILY 10/09/13 [History] Vitamin B Complex 1 cap PO DAILY 10/09/13 [History] Vitamin E 400 units PO DAILY 10/09/13 [History] Ascorbic Acid [Vitamin C] 1,000 mg PO DAILY 12/13/17 [History] Biotin 5,000 mcg PO DAILY 12/13/17 [History] Famotidine 20 mg PO BID 12/13/17 [History] Ferrous Sulfate 325 mg PO DAILY 12/13/17 [History] Niacin 100 mg PO DAILY 12/13/17 [History] Sertraline [Zoloft] 12.5 mg PO DAILY 12/13/17 [History] Cetirizine [ZyrTEC] 10 mg PO DAILY #30 tab 12/18/17 [Rx] Meclizine [Antivert] 25 mg PO QID PRN #120 12/18/17 [Rx] Past Medical History HEENT History: Reports: Cataract Cardiovascular History: Reports: High Cholesterol, Hypertension SPRING INTERN History: Reports: , Other (See Below) Other SPRING INTERN History: C SECTION X2 - Past Surgical History HEENT Surgical History: Reports: Cataract Surgery, Tonsillectomy Social & Family History - Family History Family Medical History: Noncontributory - Caffeine Use Caffeine Use: Reports: Coffee - Living Situation & Occupation Living situation: Reports: , Alone Occupation: Retired ED ROS GENERAL - Review of Systems Review Of Systems: ROS reveals no pertinent complaints other than HPI. ED EXAM, NEURO - Physical Exam Exam: See Below Exam Limited By: No Limitations General Appearance: Alert, WD/WN, No Apparent Distress Eye Exam: Bilateral Eye: EOMI, Normal Fundi, Normal Inspection, PERRL Ears: Normal External Exam, Normal Canal, Hearing Grossly Normal, Normal TMs Nose: Normal Inspection, Normal Mucosa, No Blood Throat/Mouth: Normal Inspection, Normal Lips, Normal Teeth, Normal Gums, Normal Oropharynx, Normal Voice, No Airway Compromise Head Exam: Atraumatic, Normocephalic Neck: Normal Inspection, Supple, Non-Tender, Full Range of Motion Respiratory/Chest: No Respiratory Distress, Lungs Clear, Normal Breath Sounds, No Accessory Muscle Use, Chest Non-Tender Cardiovascular: Normal Peripheral Pulses, Regular Rate, Rhythm, No Edema, No Gallop, No JVD, No Murmur, No Rub GI/Abdominal: Normal Bowel Sounds, Soft, Non-Tender, No Organomegaly, No Distention, No Abnormal Bruit, No Mass Neurological: Alert, Normal Mood/Affect, Normal Dorsiflexion, CN II-XII Intact, Normal Plantar Flexion, Normal Gait, Normal Reflexes, No Motor/Sensory Deficits , Oriented x 3 Back Exam: Normal Inspection, Full Range of Motion, NT Extremities: Normal Inspection, Normal Range of Motion, Non-Tender, No Pedal Edema, Normal Capillary Refill Psychiatric: Anxious Skin Exam: Warm, Dry, Intact, Normal Color, No Rash Course - Vital Signs Last Recorded V/S: Last Vital Signs Temp 98.2 F 01/21/18 18:16 Pulse 84 01/21/18 18:16 Resp 18 01/21/18 18:16 BP 160/80 H 01/21/18 18:16 Pulse Ox 100 01/21/18 18:16 - Orders/Labs/Meds Labs: Laboratory Tests 01/21/18 01/21/18 01/21/18 Range/Units 18:19 18:19 18:19 WBC 5.8 (5.0-10.0) 10^3/uL RBC 3.33 L (4.00-5.50) 10^6/uL Hgb 10.2 L (12.0-16.0) g/dL Hct 29.6 L (37.0-47.0) % MCV 88.9 (82.0-94.0) fL MCH 30.6 (27.0-32.0) pg MCHC 34.5 (33.0-38.0) g/dL RDW Coeff of Srinivas 17.3 H (11.0-15.0) % Plt Count 195 (150-400) 10^3/uL Neut % (Auto) 66.8 (35-85) % Lymph % (Auto) 18.6 (10-55) % Ector % (Auto) 12.2 (0-16) % Eos % (Auto) 1.9 (0-5) % Baso % (Auto) 0.5 (0-3) % Neut # (Auto) 3.87 (1.80-7.00) 10^3/uL Lymph # (Auto) 1.08 (1.00-4.80) 10^3/uL Ector # (Auto) 0.71 (0.00-0.80) 10^3/uL Eos # (Auto) 0.11 (0.00-0.45) 10^3/uL Baso # (Auto) 0.03 10^3/uL Sodium 129 L (136-145) mEq/L Potassium 3.4 L (3.5-5.0) mEq/L Chloride 91 L (98-106) mEq/L Carbon Dioxide 26 (21-32) mmol/L BUN 13 (7-18) mg/dL Creatinine 0.9 (0.6-1.0) mg/dL Est Cr Clr Drug Dosing 30.44 mL/min Estimated GFR (MDRD) 59 L (>=60) mL/min Glucose 120 H (75-99) mg/dL Calcium 8.6 (8.4-10.1) mg/dL Total Bilirubin 0.7 (0.0-1.0) mg/dL AST 23 (15-37) U/L ALT 28 (12-78) U/L Alkaline Phosphatase 99 (46-116) U/L Total Protein 7.2 (6.4-8.2) g/dL Albumin 3.9 (3.4-5.0) g/dL Urine Color Yellow (YELLOW) Urine Appearance Clear (CLEAR) Urine pH 7.0 (4.5-8.0) Ur Specific [place] 1.010 (1.003-1.020) Urine Protein Negative (NEGATIVE) mg/dL Urine Glucose (UA) Negative (NEGATIVE) mg/dL Urine Ketones Negative (NEGATIVE) mg/dL Urine Occult Blood Trace-intact H (NEGATIVE) Urine Nitrite Negative (NEGATIVE) Urine Bilirubin Negative (NEGATIVE) Urine Urobilinogen 0.2 (0.2-1.0) EU/dL Ur Leukocyte Esterase Trace H (NEGATIVE) Urine RBC Not seen (0-5) /HPF Urine WBC Not seen (0-5) /HPF - Re-Assessments/Exams Free Text/Narrative Re-Assessment/Exam: 01/21/18 19:00 Discussed lab results with patient and grandson. Sodium and potassium are both low. Patient has had low Na levels for the past few months. Recommended patient follow up in the next few days with her PCP for recheck labs. Encouraged her to increase fluid intake. She also reports she never adds salt to anything. Patient has remained alert and oriented throughout Ed stay. Her symptoms have resolved. Departure - Departure Time of Disposition: 19:02 Disposition: Home, Self-Care 01 Condition: Good Clinical Impression: Anxiety, Chronic hyponatremia, Hypokalemia Hypertension Qualifiers: Hypertension type: essential hypertension Qualified Code(s): I10 - Essential ( primary) hypertension - Discharge Information *PRESCRIPTION DRUG MONITORING PROGRAM REVIEWED*: Not Applicable *COPY OF PRESCRIPTION DRUG MONITORING REPORT IN PATIENT YESSICA: Not Applicable Instructions: Generalized Anxiety Disorder, Adult Referrals: Aleksandra Rosario PA-C [Primary Care Provider] - Forms: ED Department Discharge Additional Instructions: 1) Increase fluid intake. At least 5 glasses of water daily. 2) Recommend follow up with PCP Aleksandra ROB in the next few days to recheck lab work. Lab orders are in, so you can have labs drawn prior to clinic appointment. Also recommend discussing elevated blood pressure and use of as needed anxiety medication. 3) Return to ED for any emergent needs
== END 2018-01-21 19:14 | disposition home or self-care (01) ==
LOC: CC.ED 18:05
DX: E87.6 Hypokalemia (principal); E87.1 Hypo-osmolality and hyponatremia; F41.9 Anxiety disorder, unspecified; I10 Essential (primary) hypertension; Z79.82 Long term (current) use of aspirin; Z79.899 Other long term (current) drug therapy
CPT/HCPCS: 36415; 80053; 81001; 85025; 99283; 99284

== ENCOUNTER 2018-10-24 19:25 | Observation (INO) | payer MEDICARE, BC ==
[2018-10-24] MEDS ORDERED: Ondansetron 4 MG/2 ML SDV IVPUSH PRN (20:03)
--- NOTE | 2018-10-24 20:13 | EDM.PDOC ---
ED HPI GENERAL MEDICAL PROBLEM - General Chief Complaint: General Stated Complaint: dizziness, nausea Time Seen by Provider: 10/24/18 19:50 Source of Information: Reports: Patient History Limitations: Reports: No Limitations - History of Present Illness INITIAL COMMENTS - FREE TEXT/NARRATIVE: Patient presents to ER with daughter with sudden onset dizziness today. Patient states first episode started this am when she turned over in bed. After a short time, that passed and she went about her day. Around 4 pm this afternoon, had increased symptoms again with associated nausea. Had taken a meclizine but was unable to keep it down. Unable to get up and move around due to "room spinning". Symptoms worse with opening eyes. Denies headache or head trauma. No blurred vision. Denies chest pain, shortness of breath, abdominal pain. No urinary symptoms. Not aware of blood in stools but does relate takes iron so "stools are always very dark". Had similar concerns one year ago. Was hospitalized. Had canalith repositioning and has done well since. Onset: Today, Sudden Duration: Hour(s): Location: Reports: Head Severity: Severe Improves with: Reports: Rest Worsens with: Reports: Movement Associated Symptoms: Reports: Nausea/Vomiting, Weakness. 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) - Related Data Allergies Allergy/AdvReac Type Severity Reaction Status Date / Time No Known Allergies Allergy Verified 01/21/18 18:26 Home Meds: Home Meds Aspirin [Halfprin] 81 mg PO DAILY 10/09/13 [History] Calcium Carbonate/Vitamin D3 [Calcium 600 + Vit D Tablet] 3 tab PO DAILY [History] Cholecalciferol (Vitamin D3) [Vitamin D3] 1,000 units PO DAILY 10/09/13 [History ] Enalapril Maleate 5 mg PO BID 10/09/13 [History] Flaxseed Oil [Flax Oil] 1 cap PO DAILY 10/09/13 [History] Hydrochlorothiazide 12.5 mg PO DAILY 10/09/13 [History] LORazepam [Ativan] 0.5 mg PO BEDTIME PRN 10/09/13 [History] Magnesium 250 mg PO DAILY 10/09/13 [History] Multivit-Min/FA/Lycopene/Lut [Centrum Silver] 1 tab PO DAILY 10/09/13 [History] Simvastatin 10 mg PO DAILY 10/09/13 [History] Vitamin B Complex 1 cap PO DAILY 10/09/13 [History] Vitamin E 400 units PO DAILY 10/09/13 [History] Ascorbic Acid [Vitamin C] 1,000 mg PO DAILY 12/13/17 [History] Biotin 5,000 mcg PO DAILY 12/13/17 [History] Famotidine 20 mg PO BID 12/13/17 [History] Ferrous Sulfate 325 mg PO DAILY 12/13/17 [History] Niacin 100 mg PO DAILY 12/13/17 [History] Sertraline [Zoloft] 12.5 mg PO DAILY 12/13/17 [History] Cetirizine [ZyrTEC] 10 mg PO DAILY #30 tab 12/18/17 [Rx] Meclizine [Antivert] 25 mg PO QID PRN #120 12/18/17 [Rx] Past Medical History HEENT History: Reports: Cataract Cardiovascular History: Reports: High Cholesterol, Hypertension Respiratory History: Reports: None 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 BALANCE TRUING History: Reports: , Other (See Below) Other INSPECTOR BALANCE TRUING History: C SECTION X2 Neurological History: Reports: Vertigo Psychiatric History: Reports: Anxiety Oncologic (Cancer) History: Reports: Uterine Dermatologic History: Reports: Eczema - Past Surgical History HEENT Surgical History: Reports: Cataract Surgery, Tonsillectomy Cardiovascular Surgical History: Reports: None GI Surgical History: Reports: Cholecystectomy Female Surgical History: Reports: Hysterectomy Social & Family History - Family History Family Medical History: Noncontributory - Tobacco Use Smoking Status *Q: Never Smoker - Caffeine Use Caffeine Use: Reports: Coffee - Recreational Drug Use Recreational Drug Use: No - Living Situation & Occupation Living situation: Reports: , Alone Occupation: Retired ED ROS GENERAL - Review of Systems Review Of Systems: See Below Constitutional: Reports: Weakness, Fatigue. Denies: Fever, Chills, Malaise HEENT: Reports: Hearing Loss, Rhinitis, Vertigo. Denies: Ear Pain, Throat Pain , Vision Change Respiratory: Denies: Shortness of Breath, Cough Cardiovascular: Denies: Chest Pain, Edema, Lightheadedness Endocrine: Reports: Fatigue GI/Abdominal: Reports: Nausea, Vomiting. Denies: Abdominal Pain, Constipation, Diarrhea : Reports: No Symptoms Skin: Reports: No Symptoms Neurological: Reports: Dizziness, Headache, Weakness Psychiatric: Reports: No Symptoms ED EXAM, GENERAL - Physical Exam Exam: See Below Exam Limited By: No Limitations General Appearance: Alert, WD/WN, No Apparent Distress Eye Exam: Bilateral Eye: EOMI, PERRL Ears: Normal External Exam, Normal TMs Ear Exam: Bilateral Ear: TM normal Nose: Normal Inspection, Normal Mucosa, No Blood Throat/Mouth: Normal Inspection, Normal Oropharynx Head: Normocephalic Neck: Normal Inspection, Supple, Non-Tender Respiratory/Chest: No Respiratory Distress, Lungs Clear, Normal Breath Sounds Cardiovascular: Regular Rate, Rhythm, No Edema GI/Abdominal: Normal Bowel Sounds, Soft, Non-Tender Extremities: Normal Inspection, No Pedal Edema Neurological: Alert, Oriented Skin Exam: Warm, Dry Course - Vital Signs Last Recorded V/S: Last Vital Signs Temp 97.7 F 10/24/18 19:25 Pulse 75 10/24/18 19:25 Resp 12 10/24/18 19:25 BP 183/76 H 10/24/18 19:25 Pulse Ox - Orders/Labs/Meds Orders: Active Orders 24 hr Category Date Time Status EKG Documentation Completion [RC] ROUTINE Care 10/24/18 20:00 Active Head wo Cont [CT] Stat Exams 10/24/18 20:18 Ordered UA W/MICROSCOPIC [URIN] Stat Lab 10/24/18 20:00 Ordered Ondansetron [Zofran] Med 10/24/18 20:03 Ordered 4 mg IVPUSH Q6H PRN Sodium Chloride 0.9% @ 75 MLS/HR(1000ml) Med 10/24/18 20:15 Ordered Sodium Chloride 0.9% [Normal Saline] 1,000 ml IV ASDIRECTED Medication Orders Sodium Chloride (Normal Saline) 1,000 mls @ 75 mls/hr IV ASDIRECTED HARESH Last Admin: 10/24/18 20:25 Dose: 75 mls/hr Ondansetron HCl (Zofran) 4 mg IVPUSH Q6H PRN PRN Reason: Nausea Last Admin: 10/24/18 20:24 Dose: 4 mg Labs: Laboratory Tests 10/24/18 10/24/18 Range/Units 20:10 20:10 WBC 6.2 (5.0-10.0) 10^3/uL RBC 3.22 L (4.00-5.50) 10^6/uL Hgb 9.7 L (12.0-16.0) g/dL Hct 29.6 L (37.0-47.0) % MCV 91.9 (82.0-94.0) fL MCH 30.1 (27.0-32.0) pg MCHC 32.8 L (33.0-38.0) g/dL RDW Coeff of Srinivas 18.2 H (11.0-15.0) % Plt Count 197 (150-400) 10^3/uL Neut % (Auto) 77.1 (35-85) % Lymph % (Auto) 14.6 (10-55) % [place] % (Auto) 6.8 (0-16) % Eos % (Auto) 1.0 (0-5) % Baso % (Auto) 0.5 (0-3) % Neut # (Auto) 4.77 (1.80-7.00) 10^3/uL Lymph # (Auto) 0.90 L (1.00-4.80) 10^3/uL [place] # (Auto) 0.42 (0.00-0.80) 10^3/uL Eos # (Auto) 0.06 (0.00-0.45) 10^3/uL Baso # (Auto) 0.03 10^3/uL Sodium 133 L (136-145) mEq/L Potassium 3.9 (3.5-5.0) mEq/L Chloride 97 L (98-106) mEq/L Carbon Dioxide 27 (21-32) mmol/L BUN 12 (7-18) mg/dL Creatinine 0.9 (0.6-1.0) mg/dL Est Cr Clr Drug Dosing TNP Estimated GFR (MDRD) 59 L (>=60) mL/min Glucose 135 H D (75-99) mg/dL Calcium 9.2 (8.4-10.1) mg/dL Total Bilirubin 0.7 (0.0-1.0) mg/dL AST 25 (15-37) U/L ALT 16 (12-78) U/L Alkaline Phosphatase 78 (46-116) U/L Lactate Dehydrogenase 672 H (100-190) U/L Creatine Kinase 33 (21-215) U/L Troponin I < 0.017 (0.00-0.06) ng/mL Total Protein 7.1 (6.4-8.2) g/dL Albumin 4.0 (3.4-5.0) g/dL Meds: Medications Generic Name Dose Route Start Last Admin Trade Name Freq PRN Reason Stop Dose Admin Sodium Chloride 1,000 mls @ 75 mls/hr 10/24/18 20:15 10/24/18 20:25 Normal Saline IV 75 mls/hr ASDIRECTED HARESH Administration Ondansetron HCl 4 mg 10/24/18 20:03 10/24/18 20:24 Zofran IVPUSH 4 mg Q6H PRN Administration Nausea - Re-Assessments/Exams Free Text/Narrative Re-Assessment/Exam: 10/24/18 20:49 Labs noted. LDH is elevated, liver enzymes, CK and troponin negative. UA unremarkable. EKG NSR. 10/24/18 20:[address] scan of head. 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 OPERATOR [Primary Care Provider] - Forms: ED Department Discharge - Problem List & Annotations (1) Vertigo SNOMED Code(s): 899737656 Code(s): R42 - DIZZINESS AND GIDDINESS Status: Acute Priority: High Current Visit: Yes - Problem List Review Problem List Initiated/Reviewed/Updated: Yes - My Orders Last 24 Hours: My Active Orders 10/24/18 20:00 EKG Documentation Completion [RC] ROUTINE UA W/MICROSCOPIC [URIN] Stat 10/24/18 20:03 Ondansetron [Zofran] 4 mg IVPUSH Q6H PRN 10/24/18 20:15 Sodium Chloride 0.9% @ 75 MLS/HR(1000ml) Sodium Chloride 0.9% [Normal Saline] 1 ,000 ml IV ASDIRECTED 10/24/18 20:18 Head wo Cont [CT] Stat - Assessment/Plan Admission H&P: Please use this note as an admission H&P Last 24 Hours: My Active Orders 10/24/18 20:00 EKG Documentation Completion [RC] ROUTINE UA W/MICROSCOPIC [URIN] Stat 10/24/18 20:03 Ondansetron [Zofran] 4 mg IVPUSH Q6H PRN 10/24/18 20:15 Sodium Chloride 0.9% @ 75 MLS/HR(1000ml) Sodium Chloride 0.9% [Normal Saline] 1 ,000 ml IV ASDIRECTED 10/24/18 20:18 Head wo Cont [CT] Stat Assessment:: Vertigo Plan: Admit observation. Cardiac monitoring. IV fluids. Zofran for nausea. Repeat labs in am.
[2018-10-24] MEDS ORDERED: Sodium Chloride 0.9% 1,000 ML IV SCH (20:15)
[2018-10-24 20:31] LABS: CHLORIDE,CL 97 mEq/L (98-106); SODIUM,NA 133 mEq/L (136-145)
[2018-10-24] MEDS ORDERED: Acetaminophen 325 MG Tab PO PRN (22:47)
[2018-10-25 07:55] LABS: CHLORIDE,CL 102 mEq/L (98-106); SODIUM,NA 136 mEq/L (136-145)
[2018-10-25] MEDS ORDERED: MECLIZINE 25 MG PO PRN (08:05)
[2018-10-25] MEDS ORDERED: LORAZEPAM 0.5 MG PO PRN (08:05)
[2018-10-25] MEDS ORDERED: ASPIRIN 81 MG PO SCH ×2 (08:06→20:00)
[2018-10-25] MEDS ORDERED: SERTRALINE 25 MG PO SCH ×2 (08:15→20:00)
[2018-10-25] MEDS ORDERED: NIACIN 100 MG PO SCH ×2 (08:15→20:00)
[2018-10-25] MEDS ORDERED: BIOTIN 5000 MCG PO SCH (08:15)
[2018-10-25] MEDS ORDERED: FAMOTIDINE 20 MG PO SCH (08:15)
[2018-10-25] MEDS ORDERED: CHOLECALCIFEROL 1000 UNIT PO SCH (08:15)
[2018-10-25] MEDS ORDERED: [UNRECOGNIZED DRUG - OTHER] PO SCH ×2 (08:15→20:00)
[2018-10-25] MEDS ORDERED: MAGNESIUM 250 MG PO SCH (08:15)
[2018-10-25] MEDS ORDERED: ENALAPRIL 5 MG PO SCH (08:15)
[2018-10-25] MEDS ORDERED: FERROUS SULFATE 325 MG PO SCH ×2 (08:15→20:00)
[2018-10-25] MEDS ORDERED: VITAMIN E 400 UNIT PO SCH (08:15)
[2018-10-25] MEDS ORDERED: FLAXSEED OIL PO SCH ×2 (08:15→20:00)
[2018-10-25] MEDS ORDERED: MAGNESIUM OXIDE 500 MG PO SCH (08:15)
[2018-10-25] MEDS ORDERED: Non-Formulary Medication 1 Each (Multivit-Min/Fa/Lycopene/Lut [Centrum Silver] 1 TAB) PO SCH (08:15)
[2018-10-25 12:21] VITALS: BP 135/45
[2018-10-25] MEDS ORDERED: CHOLECALCIFEROL PO SCH (20:00)
[2018-10-25] MEDS ORDERED: CALCIUM PO SCH (20:00)
--- NOTE | 2018-10-25 20:42 | PCM.DCSUM1 ---
Discharge Summary - Hospital Course Free Text/Narrative:: Patient presented to ER last evening with increased dizziness. Had 2 episodes yesterday, first passing uneventfully. States second episode started at 4 pm and persisted. Accompanied by nausea and vomiting. Was unable to keep her Meclizine down. Has history of vertigo one year ago. Did require canalith repositioning x2 at that time. Now states having a difficult time moving or even keeping eyes open. Was given Zofran and IV fluids in ER which did help nausea but dizziness persisted. Labs. EKG and CT of head negative in ER. Admitted for further monitoring, IV fluids and PT in am for canalith repositioning. Diagnosis: Stroke: No Modified Milmay Scale: No Symptoms at All Modified Milmay Scale Score: 0 - Discharge Data Discharge Date: 10/25/18 Discharge Disposition: Home, Self-Care 01 Condition: Good - Discharge Diagnosis/Problem(s) (1) Vertigo SNOMED Code(s): 441787015 ICD Code: R42 - DIZZINESS AND GIDDINESS Status: Acute Priority: High - Patient Summary/Data Complications: none Consults: Consultations 10/24/18 22:47 PT Evaluation and Treatment [CONS] Routine Hospital Course: patient doing much better this am. States awoke feeling well today, not dizzy this am. Has been ambulating to the bathroom x2 this am without difficulty. No further nausea. Cardiac monitoring stable. Labs this am are improved. LDH now to 561, troponin has remained negative. Hemoglobin is 8.4, chronic for patient in past comparisons, states has been taking iron for this. Blood pressure stable, 116/40. Ambulating with staff, PT evaluated. Has not had further dizziness throughout day. Will discharge home. Can continue with meclizine as needed. See Iva in one week. - Patient Instructions Diet: Usual Diet as Tolerated Activity: As Tolerated - Discharge Plan *PRESCRIPTION DRUG MONITORING PROGRAM REVIEWED*: No *COPY OF PRESCRIPTION DRUG MONITORING REPORT IN PATIENT YESSICA: No Home Medications: Home Meds Aspirin [Halfprin] 81 mg PO DAILY 10/09/13 [History] Calcium Carbonate/Vitamin D3 [Calcium 600 + Vit D Tablet] 3 tab PO DAILY [History] Cholecalciferol (Vitamin D3) [Vitamin D3] 1,000 units PO DAILY 10/09/13 [History ] Enalapril Maleate 5 mg PO BID 10/09/13 [History] Flaxseed Oil [Flax Oil] 1 cap PO DAILY 10/09/13 [History] LORazepam [Ativan] 0.5 mg PO BEDTIME PRN 10/09/13 [History] Magnesium 250 mg PO DAILY 10/09/13 [History] Multivit-Min/FA/Lycopene/Lut [Centrum Silver] 1 tab PO DAILY 10/09/13 [History] Simvastatin 10 mg PO DAILY 10/09/13 [History] Vitamin E 400 units PO DAILY 10/09/13 [History] Biotin 5,000 mcg PO DAILY 12/13/17 [History] Famotidine 20 mg PO BID 12/13/17 [History] Ferrous Sulfate 325 mg PO DAILY 12/13/17 [History] Niacin 100 mg PO DAILY 12/13/17 [History] Sertraline [Zoloft] 25 mg PO DAILY 12/13/17 [History] Magnesium Oxide [Magnesium] 500 mg PO ASDIRECTED 10/24/18 [History] Meclizine [Antivert] 25 mg PO Q6HR PRN 10/24/18 [History] Patient Handouts: Vertigo Forms: ED Department Discharge Referrals: Iva Ludwig, [employer] [Primary Care Provider] - (Follow up with Iva in one week) - Discharge Summary/Plan Comment DC Time >30 min.: No - General Info Date of Service: 10/25/18 Admission Dx/Problem (Free Text: Vertigo Functional Status: Reports: Pain Controlled, Tolerating Diet, Ambulating, Urinating - Review of Systems General: Denies: Weakness, Fatigue, Malaise HEENT: Reports: No Symptoms Pulmonary: Denies: Shortness of Breath, Cough Cardiovascular: Denies: Chest Pain, Palpitations, Lightheadedness Gastrointestinal: Denies: Abdominal Pain, Nausea, Vomiting Genitourinary: Reports: No Symptoms Musculoskeletal: Reports: No Symptoms Skin: Reports: No Symptoms Neurological: Denies: Dizziness, Headache, Weakness Psychiatric: Reports: No Symptoms - Patient Data Vitals - Most Recent: Last Vital Signs Temp 98.8 F 10/25/18 12:00 Pulse 68 10/25/18 12:00 Resp 18 10/25/18 12:00 BP 135/45 L 10/25/18 12:00 Pulse Ox 100 10/25/18 12:00 Weight - Most Recent: 137 lb Lab Results - Last 24 hrs: Laboratory Results - last 24 hr 10/24/18 10/25/18 10/25/18 Range/Units 20:35 07:00 07:00 WBC 5.2 (5.0-10.0) 10^3/uL RBC 2.79 L (4.00-5.50) 10^6/uL Hgb 8.4 L (12.0-16.0) g/dL Hct 26.0 L (37.0-47.0) % MCV 93.2 (82.0-94.0) fL MCH 30.1 (27.0-32.0) pg MCHC 32.3 L (33.0-38.0) g/dL RDW Coeff of Srinivas 18.4 H (11.0-15.0) % Plt Count 184 (150-400) 10^3/uL Neut % (Auto) 70.0 (35-85) % Lymph % (Auto) 18.7 (10-55) % [place] % (Auto) 9.4 (0-16) % Eos % (Auto) 1.5 (0-5) % Baso % (Auto) 0.4 (0-3) % Neut # (Auto) 3.63 (1.80-7.00) 10^3/uL Lymph # (Auto) 0.97 L (1.00-4.80) 10^3/uL [place] # (Auto) 0.49 (0.00-0.80) 10^3/uL Eos # (Auto) 0.08 (0.00-0.45) 10^3/uL Baso # (Auto) 0.02 10^3/uL Sodium 136 (136-145) mEq/L Potassium 3.9 (3.5-5.0) mEq/L Chloride 102 (98-106) mEq/L Carbon Dioxide 28 (21-32) mmol/L BUN 10 (7-18) mg/dL Creatinine 0.9 (0.6-1.0) mg/dL Est Cr Clr Drug Dosing 30.44 mL/min Estimated GFR (MDRD) 59 L (>=60) mL/min Glucose 91 D (75-99) mg/dL Calcium 8.4 (8.4-10.1) mg/dL Total Bilirubin 0.5 (0.0-1.0) mg/dL AST 19 (15-37) U/L ALT 13 (12-78) U/L Alkaline Phosphatase 61 (46-116) U/L Lactate Dehydrogenase 561 H (100-190) U/L Creatine Kinase 27 (21-215) U/L Troponin I < 0.017 (0.00-0.06) ng/mL Total Protein 6.1 L (6.4-8.2) g/dL Albumin 3.3 L (3.4-5.0) g/dL Urine Color Yellow (YELLOW) Urine Appearance Slightly cloudy (CLEAR) Urine pH 8.0 (4.5-8.0) Ur Specific [place] 1.015 (1.003-1.020) Urine Protein 30 H (NEGATIVE) mg/dL Urine Glucose (UA) Negative (NEGATIVE) mg/dL Urine Ketones Trace H (NEGATIVE) mg/dL Urine Occult Blood Trace-intact H (NEGATIVE) Urine Nitrite Negative (NEGATIVE) Urine Bilirubin Negative (NEGATIVE) Urine Urobilinogen 0.2 (0.2-1.0) EU/dL Ur Leukocyte Esterase Negative (NEGATIVE) Urine RBC 0-5 (0-5) /HPF Urine WBC 0-5 (0-5) /HPF Amorphous Sediment Moderate H (NOT SEEN) /HPF Med Orders - Current: Current Medications Discontinued Medications Acetaminophen (Tylenol) 650 mg PO Q4H PRN PRN Reason: Pain (Mild 1-3)/fever Aspirin (Halfprin) 81 mg PO DAILY [facility] Last Admin: 10/25/18 11:04 Dose: Not Given Aspirin (Halfprin) 81 mg PO BEDTIME [facility] Enalapril Maleate (Vasotec) 5 mg PO BID [facility] Last Admin: 10/25/18 08:55 Dose: 5 mg Famotidine (Pepcid) 20 mg PO BID [facility] Last Admin: 10/25/18 08:55 Dose: 20 mg Sodium Chloride (Normal Saline) 1,000 mls @ 75 mls/hr IV ASDIRECTED [facility] Last Admin: 10/24/18 20:25 Dose: 75 mls/hr Lorazepam (Ativan) 0.5 mg PO BEDTIME PRN PRN Reason: Sleep Ownmed Biotin 5, (000 Mcg) 5,000 mcg PO DAILY [facility] Last Admin: 10/25/18 08:57 Dose: 5,000 mcg Ownmed Calcium (600 + Vit D Tablet) 2 tab PO DAILY [facility] Ownmed Cholecalciferol [ Vitamin D3] 1,000 Units 1,000 units PO DAILY [facility] Last Admin: 10/25/18 11:04 Dose: Not Given Ownmed Ferrous (Sulfate 325 Mg) 325 mg PO DAILY [facility] Last Admin: 10/25/18 11:04 Dose: Not Given Ownmed Flaxseed (Oil [Flax Oil] 1 Cap) 1 cap PO DAILY [facility] Last Admin: 10/25/18 11:04 Dose: Not Given Ptom Magnesium Oxide [Magnesium] 500 Mg 500 mg PO DAILY [facility] Last Admin: 10/25/18 11:04 Dose: Not Given Ownmed Magnesium (250 Mg) 250 mg PO DAILY [facility] Last Admin: 10/25/18 08:57 Dose: 250 mg Ownmed Meclizine ([Antivert] 25 Mg) 25 mg PO Q6H PRN PRN Reason: dizziness Last Admin: 10/25/18 08:56 Dose: 25 mg Non-Formulary Medication (Multivit-Min/Fa/Lycopene/Lut [Centrum Silver]) 1 tab PO DAILY [facility] Last Admin: 10/25/18 11:04 Dose: Not Given Ownmed Niacin (100 Mg) 100 mg PO DAILY [facility] Last Admin: 10/25/18 11:05 Dose: Not Given Ptom Vitamin E (400 Units) 400 units PO DAILY [facility] Last Admin: 10/25/18 08:58 Dose: 400 units Ownmed Niacin (100 Mg) 100 mg PO BEDTIME [facility] Ownmed Ferrous (Sulfate 325 Mg) 325 mg PO BEDTIME [facility] Ownmed Flaxseed (Oil [Flax Oil] 1 Cap) 1 cap PO BEDTIME [facility] Ownmed Calcium (600 + Vit D Tablet) 1 tab PO BEDTIME [facility] Ownmed Cholecalciferol [ Vitamin D3] 5,000 Units 5,000 units PO DAILY [facility] Ondansetron HCl (Zofran) 4 mg IVPUSH Q6H PRN PRN Reason: Nausea Last Admin: 10/24/18 20:24 Dose: 4 mg Sertraline HCl (Zoloft) 25 mg PO DAILY [facility] Last Admin: 10/25/18 11:05 Dose: Not Given Sertraline HCl (Zoloft) 25 mg PO BEDTIME [facility]ESH Simvastatin (Zocor) 10 mg PO DAILY [facility] Last Admin: 10/25/18 11:05 Dose: Not Given Simvastatin (Zocor) 10 mg PO BEDTIME HARESH - Exam General: Reports: Alert, Oriented Neck: Reports: Supple Lungs: Reports: Clear to Auscultation, Normal Respiratory Effort Cardiovascular: Reports: Regular Rate, Regular Rhythm GI/Abdominal Exam: Normal Bowel Sounds, Soft, Non-Tender Extremities: Normal Inspection, Normal Range of Motion, No Pedal Edema Skin: Reports: Warm, Dry Neurological: Reports: No New Focal Deficit
[2018-10-26] MEDS ORDERED: CHOLECALCIFEROL PO SCH (08:00)
[2018-10-26] MEDS ORDERED: CALCIUM PO SCH (08:00)
[2018-10-26] MEDS ORDERED: CHOLECALCIFEROL 5000 UNIT PO SCH (08:00)
== END 2018-10-25 14:30 | disposition home or self-care (01) ==
LOC: CC.ED 19:25 → UNDOADMOB 20:45 → CC.MS 20:45
PROVIDERS: ADMIT Physician Assistant Medical; ATTEND Family Medicine
DX: R42 Dizziness and giddiness (principal); E78.00 Pure hypercholesterolemia, unspecified; I10 Essential (primary) hypertension; F41.9 Anxiety disorder, unspecified; Z86.69 Personal history of other diseases of the nervous system and sense organs; Z79.82 Long term (current) use of aspirin; Z79.899 Other long term (current) drug therapy
CPT/HCPCS: 36415; 70450; 80053; 81001; 82550; 83615; 84484; 85025; 93005; 96361; 96374; 97161-GP; 99217; 99220; 99285-25; A9270-GY; G0378; J2405; J7030